=== PATIENT | female | born 1985 | race Two or more races ===

== ENCOUNTER 2016-12-26 13:29 | Emergency (ER) | payer OTHER ==
[~2016-12-26] VITALS: Ht 170.2 cm; Wt 109.1 kg
[~2016-12-26 13:29] MED LIST: AMOXICILLIN500 MG PO; AZITHROMYCIN250 MG PO; BENZONATATE100 MG PO; GUAIFENESIN AC473 ML PO; HYDROCODON-ACE1 EAC7 PO; IBUPROFEN800 MG PO; KEFLEX500 MG PO; LEXAPRO20 MG PO; MIRENA52 MG IY; NAPROSYN500 MG PO; PERCOCET 5/31 TABLET PO; PREDNISONE10 MG PO; TRAZODONE HCL50 MG PO
[2016-12-26 15:03] LABS: HEMATOCRIT 38.5 % (36.0-46.0); MCH 29.2 PG (29.0-34.0); MCHC 33.2 G/DL (30.0-36.0); MCV 87.7 FL (83-99); MEAN PLAT.VOLUME 9.5 uM^3 (9.5-12.4); PLATELET COUNT 198 K/uL (156-360); RBC DIS.WIDTH-CV 12.5 % (11.8-14.6); RBC DIS.WIDTH-SD 40.2 % (39-53); RED BLOOD COUNT 4.39 M/uL (3.80-5.20); WHITE BLOOD COUNT 8.4 K/uL (4.1-10.2)
[2016-12-26 16:02] LABS: ADD MIUA? YES; BILIRUBIN NEGATIVE; BLOOD NEGATIVE; COLOR YELLOW ((YELLOW)); GLUCOSE (STRIP) NEGATIVE; KETONES NEGATIVE; LEUKOCYTES NEGATIVE; NITRITE NEGATIVE; PROTEIN (STRIP) NEGATIVE; SPECIFIC GRAVITY 1.019 (1.000-1.030)
[2016-12-26 16:42] LABS: EPITHELIAL CELLS 1+ /HPF; RED BLOOD CELLS 0-5 /HPF (0-5); WHITE BLOOD CELLS 0-5 /HPF (0-5)
[2016-12-26 16:43] LABS: AMORPHOUS URATES CRYSTALS 3+; BACTERIA RARE /HPF; MUCUS NONE SEEN /LPF
[2016-12-26] MEDS ORDERED: FLEXERIL5 MG PO (16:59)
[2016-12-26] MEDS ORDERED: MOTRIN800 MG PO (16:59)
[2016-12-26 17:00] VITALS: BP 110/80
== END 2016-12-26 17:01 | disposition home or self-care (01) ==
LOC: EME 13:29
PROVIDERS: Physician Assistant
DX: R10.2 Pelvic and perineal pain (principal); D25.9 Leiomyoma of uterus, unspecified; M54.5 Low back pain; Z85.820 Personal history of malignant melanoma of skin; Z87.891 Personal history of nicotine dependence; Z97.5 Presence of (intrauterine) contraceptive device
CPT/HCPCS: 76856; 81003; 84702; 85027; 99281; 99283

== ENCOUNTER 2017-03-10 08:54 | Inpatient (IN) | payer OTHER ==
[~2017-03-10] VITALS: Ht 170.2 cm; Wt 114.3 kg
[~2017-03-10 08:54] MED LIST changes: +FLEXERIL5 MG PO; +MIRENA1 EACH IY; -MIRENA52 MG IY; +MOTRIN800 MG PO; +VENLAFAXINE HC150 M1 PO
[2017-03-18] MEDS ORDERED: TRAZODONE HCL50 MG PO (12:06)
[2017-03-24 06:30] VITALS: BP 117/78
[2017-03-24 06:31] VITALS: BP 117/78
[2017-03-24 12:22] VITALS: BP 120/70
[2017-03-24 15:09] VITALS: BP 130/70
[2017-03-24 18:55] VITALS: BP 123/79
[2017-03-24 23:20] VITALS: BP 123/74
[2017-03-25 03:15] VITALS: BP 107/61
[2017-03-25 06:22] LABS: BASOPHIL (%) 0.2 % (0-1); EOSINOPHIL (%) 0.1 % (0-5); HEMATOCRIT 34.4 % (36.0-46.0); HEMOGLOBIN 11.5 G/DL (11.9-15.5); IMMATURE GRANULOCYTE (%) 0.2 % (0.0-0.7); LYMPHOCYTE (%) 19.9 % (15-42); LYMPHOCYTE COUNT 1.7 K/uL (1.0-2.8); MCH 29.3 PG (29.0-34.0); MCHC 33.4 G/DL (30.0-36.0); MCV 87.8 FL (83-99); MONOCYTE (%) 7.4 % (3-12); MONOCYTE COUNT 0.7 K/uL (0-0.8); NEUTROPHIL (%) 72.2 % (45-76); NEUTROPHIL COUNT 6.3 K/uL (1.8-6.4); PLATELET COUNT 190 K/uL (156-360); RBC DIS.WIDTH-CV 13.1 % (11.8-14.6); RBC DIS.WIDTH-SD 41.6 % (39-53); RED BLOOD COUNT 3.92 M/uL (3.80-5.20); WHITE BLOOD COUNT 8.7 K/uL (4.1-10.2)
[2017-03-25 06:48] LABS: ALBUMIN 3.3 G/DL (3.2-4.8); ALKALINE PHOSPHATASE 65 IU/L (3-129); ALT (GPT) 10 IU/L (3-49); AST (GOT) 18 IU/L (2-34); CHLORIDE 103 MEQ/L (99-109); CREATININE 0.9 MG/DL (0.6-1.3); GFR ESTIMATE (CALCULATED) > 59 mL/min/; GLUCOSE 92 mg/dL (70-99); MAGNESIUM 1.6 mg/dl (1.3-2.7); PHOSPHORUS 2.2 mg/dL (2.5-4.9); POTASSIUM 3.6 MEQ/L (3.7-5.4); SODIUM 136 MEQ/L (136-147); TOTAL BILIRUBIN 0.4 MG/DL (0.0-1.0); TOTAL PROTEIN 5.7 G/DL (6.4-8.3); UREA NITROGEN (BUN) 10 mg/dL (9-23)
[2017-03-25 08:11] VITALS: BP 124/78
[2017-03-25 11:21] VITALS: BP 113/55
[2017-03-25 15:34] VITALS: BP 127/80
[2017-03-25 19:30] VITALS: BP 130/74
[2017-03-25 23:00] VITALS: BP 124/67
[2017-03-26 03:20] VITALS: BP 133/76
[2017-03-26 07:00] VITALS: BP 116/69
[2017-03-26 07:15] LABS: HEMOGLOBIN 10.9 G/DL (11.9-15.5); MCH 28.8 PG (29.0-34.0); MCV 87.3 FL (83-99); PLATELET COUNT 183 K/uL (156-360); RBC DIS.WIDTH-CV 12.9 % (11.8-14.6); RBC DIS.WIDTH-SD 41.7 % (39-53); RED BLOOD COUNT 3.78 M/uL (3.80-5.20); WHITE BLOOD COUNT 7.1 K/uL (4.1-10.2)
[2017-03-26 07:21] LABS: CHLORIDE 104 MEQ/L (99-109); CREATININE 0.8 MG/DL (0.6-1.3); GFR ESTIMATE (CALCULATED) > 59 mL/min/; GLUCOSE 94 mg/dL (70-99); MAGNESIUM 1.8 mg/dl (1.3-2.7); PHOSPHORUS 1.9 mg/dL (2.5-4.9); POTASSIUM 3.7 MEQ/L (3.7-5.4); SODIUM 135 MEQ/L (136-147); UREA NITROGEN (BUN) 9 mg/dL (9-23)
[2017-03-26 10:50] VITALS: BP 128/78
[2017-03-26] MEDS ORDERED: NORCO 5/3251 TABLET PO (11:59)
== END 2017-03-26 13:16 | disposition home or self-care (01) | DRG 331 ==
LOC: 2SOUTH 08:54 → ENRESERV 03-23 21:23 → 2SOUTH 03-24 05:22 → ENRESERV 03-24 11:28 → 2EAST 03-24 12:08 → 2SOUTH 03-24 14:12 → ENPENDDIS 03-26 → 2EAST 03-26 13:16
PROVIDERS: Surgery
PROC: 0DTH4ZZ Resection of Cecum, Percutaneous Endoscopic Approach (ICD-10-PCS; principal; 2017-03-24)
DX: D12.0 Benign neoplasm of cecum (principal); F32.9 Major depressive disorder, single episode, unspecified; F41.9 Anxiety disorder, unspecified; E66.9 Obesity, unspecified; Z87.891 Personal history of nicotine dependence; Z68.39 Body mass index [BMI] 39.0-39.9, adult
CPT/HCPCS: 80048; 80053; 83735; 84100; 85025; 85027; 88307; J0131; J0330; J1100; J1170; J1650; J1885; J2250; J2405; J2710; J2765; J3010; J7120; S0074

== ENCOUNTER 2017-04-27 11:11 | Emergency (ER) | payer BC, OTHER ==
[~2017-04-27] VITALS: Ht 170.2 cm; Wt 108.8 kg
[~2017-04-27 11:11] MED LIST changes: +NORCO 5/3251 TABLET PO
[2017-04-27 11:58] LABS: HEMATOCRIT 36.7 % (36.0-46.0); HEMOGLOBIN 12.3 G/DL (11.9-15.5); MCH 29.4 PG (29.0-34.0); MCHC 33.5 G/DL (30.0-36.0); MCV 87.8 FL (83-99); PLATELET COUNT 204 K/uL (156-360); RBC DIS.WIDTH-CV 13.2 % (11.8-14.6); RBC DIS.WIDTH-SD 42.9 % (39-53); RED BLOOD COUNT 4.18 M/uL (3.80-5.20); WHITE BLOOD COUNT 8.6 K/uL (4.1-10.2)
[2017-04-27 12:10] LABS: CHLORIDE 107 mEq/L (99-109); POTASSIUM 3.9 mEq/L (3.7-5.4); SODIUM 137 mEq/L (136-147)
[2017-04-27 12:12] LABS: GLUCOSE 89 mg/dL (70-99); TOTAL PROTEIN 7.1 g/dL (6.4-8.3)
[2017-04-27 12:14] LABS: TOTAL BILIRUBIN 0.4 mg/dL (0.0-1.0)
[2017-04-27 12:15] LABS: ALKALINE PHOSPHATASE 96 IU/L (3-129)
[2017-04-27 12:16] LABS: CREATININE 0.8 mg/dL (0.6-1.3); GFR ESTIMATE (CALCULATED) > 59 mL/min/
[2017-04-27 12:17] LABS: UREA NITROGEN (BUN) 15 mg/dL (9-23)
[2017-04-27 12:18] LABS: AST (GOT) 12 IU/L (2-34)
[2017-04-27 12:19] LABS: ALT (GPT) 8 IU/L (3-49); LIPASE 20 U/L (1.0-51.0)
[2017-04-27 12:26] LABS: QUANTITATIVE HCG < 4.0 MIU/ML
[2017-04-27] MEDS ORDERED: AUGMENTIN875 MG PO (13:12)
[2017-04-27] MEDS ORDERED: ZOFRAN4 MG PO (13:18)
[2017-04-27] MEDS ORDERED: NORCO 5/3251 TABLET PO (13:18)
[2017-04-27 13:41] VITALS: BP 124/93
== END 2017-04-27 13:42 | disposition home or self-care (01) ==
LOC: EME 11:11
PROVIDERS: Physician Assistant
DX: K52.9 Noninfective gastroenteritis and colitis, unspecified (principal); Z90.49 Acquired absence of other specified parts of digestive tract; Z87.891 Personal history of nicotine dependence; Z85.820 Personal history of malignant melanoma of skin
CPT/HCPCS: 74177; 80053; 81003; 83690; 84702; 85027; 99281; 99285; J1885; J2405; J7030

== ENCOUNTER 2017-06-28 00:03 | Emergency (ER) | payer BC, OTHER ==
[~2017-06-28] VITALS: Ht 170.2 cm; Wt 109.9 kg
[~2017-06-28 00:03] MED LIST changes: +AUGMENTIN875 MG PO; +ZOFRAN4 MG PO
[2017-06-28 00:53] LABS: HEMATOCRIT 35.1 % (36.0-46.0); HEMOGLOBIN 12.1 G/DL (11.9-15.5); MCH 29.4 PG (29.0-34.0); MCHC 34.5 G/DL (30.0-36.0); MCV 85.4 FL (83-99); PLATELET COUNT 198 K/uL (156-360); RBC DIS.WIDTH-SD 39.9 % (39-53); RED BLOOD COUNT 4.11 M/uL (3.80-5.20); WHITE BLOOD COUNT 7.9 K/uL (4.1-10.2)
[2017-06-28 01:03] LABS: ALBUMIN 3.9 g/dL (3.2-4.8)
[2017-06-28 01:04] LABS: CHLORIDE 111 mEq/L (99-109); POTASSIUM 3.5 mEq/L (3.7-5.4); SODIUM 141 mEq/L (136-147)
[2017-06-28 01:06] LABS: GLUCOSE 117 mg/dL (70-99); TOTAL PROTEIN 6.7 g/dL (6.4-8.3)
[2017-06-28 01:08] LABS: TOTAL BILIRUBIN 0.1 mg/dL (0.0-1.0)
[2017-06-28 01:09] LABS: ALKALINE PHOSPHATASE 87 IU/L (3-129)
[2017-06-28 01:10] LABS: CREATININE 0.9 mg/dL (0.6-1.3); GFR ESTIMATE (CALCULATED) > 59 mL/min/
[2017-06-28 01:11] LABS: AST (GOT) 10 IU/L (2-34); UREA NITROGEN (BUN) 11 mg/dL (9-23)
[2017-06-28 01:13] LABS: ALT (GPT) 12 IU/L (3-49); LIPASE 26 U/L (1.0-51.0)
[2017-06-28 01:21] LABS: QUANTITATIVE HCG < 4.0 MIU/ML
[2017-06-28 02:59] LABS: APPEARANCE SL.HAZY ((CLEAR)); BILIRUBIN SMALL; BLOOD SMALL; COLOR YELLOW ((YELLOW)); GLUCOSE (STRIP) NEGATIVE; KETONES NEGATIVE; LEUKOCYTES NEGATIVE; NITRITE NEGATIVE; PROTEIN (STRIP) NEGATIVE; SPECIFIC GRAVITY 1.029 (1.000-1.030); UROBILINOGEN 0.2 MG/DL (0.2-1.0)
[2017-06-28 03:05] LABS: BACTERIA NONE SEEN /HPF; EPITHELIAL CELLS RARE /HPF; MUCUS 2+ /LPF; RED BLOOD CELLS 0-5 /HPF (0-5); UCUL ADDED? NO; WHITE BLOOD CELLS 0-5 /HPF (0-5)
[2017-06-28 04:34] VITALS: BP 126/59
== END 2017-06-28 04:36 | disposition home or self-care (01) ==
LOC: EME 00:03
PROVIDERS: Nurse Practitioner Family
DX: R10.31 Right lower quadrant pain (principal); G89.29 Other chronic pain; Z97.5 Presence of (intrauterine) contraceptive device; Z85.820 Personal history of malignant melanoma of skin; Z87.891 Personal history of nicotine dependence
CPT/HCPCS: 74177; 80053; 81003; 83690; 84702; 85027; 99281; 99285; J2765; J7030